=== PATIENT | male | born 1995 | race Caucasian/White ===

== ENCOUNTER 2021-01-09 00:02 | Emergency (ER) | payer SELFPAY ==
[2021-01-09 00:02] VITALS: BP 150/101; PULSE 101; RESP 20; TEMP 36.7; O2SAT 99; BMI 24.9
[2021-01-09 00:05] VITALS: BP 150/101; PULSE 101; RESP 20; TEMP 36.7; O2SAT 99
[2021-01-09] MEDS: 0.9% Normal Saline 1,000 ML 1000 ML IV ×2 (00:30→01:18)
[2021-01-09] MEDS: Ondansetron 4 MG/2 ML Vial IV (00:31)
[2021-01-09 00:54] LABS: Anion Gap 4 (5-15); BUN 10 mg/dL (7-18); BUN/Creat Ratio 8.3 RATIO (10-20); Calcium,Total 9.1 mg/dL (8.5-10.1); Chloride 102 mmol/L (98-107); EST Glomerular Filtration Rate 78 mL/min (>60); Est Glom Filt Rate - Afr Amer 94 mL/min (>60); Estimated Creatinine Clearance 96.32 ml/min; Glucose 97 mg/dL (74-106); Potassium 3.8 mmol/L (3.5-5.1); Sodium Level 134 mmol/L (136-145)
--- NOTE | 2021-01-09 00:57 | ED.DCSUM_ITS ---
History of Present Illness Chief Complaint: Nausea/Vomiting Narrative: Patient presenting for evaluation secondary to complications of coronavirus. Patient reports that he developed coronavirus symptoms on Sunday, 6 days ago. He states that he just got his positive test results today. He reports that he mainly has been dealing with GI type symptoms. States that he has been dealing with nausea vomiting diarrhea difficulty with tolerating p.o. and generalized body aches. Patient denies that he has been having chest pain or shortness of breath. He states that he feels that he is getting significantly dehydrated with this, and is presenting for further evaluation and treatment. He denies any underlying medical issues. He denies any history of lung disease. View of systems otherwise negative. Past Medical History - Allergies and Home Meds Allergies/Adverse Reactions: Allergies No Known Allergies Allergy (Verified 01/09/21 00:32) Primary Care Physician: RANJIT,DEFINED [NON-STAFF] - Prior records reviewed: Yes Past Medical History: None Lives: Spouse/ Significant Other Smoking Status: Never smoker Alcohol: None Drugs: None Review of Systems All systems negative except as indicated General: Reports: Malaise Eyes: Denies: Visual changes - bilaterally, Diplopia ENT: Denies: Rhinorrhea, Sore throat Cardiovascular: Denies: Chest pain, Palpitations Respiratory: Denies: Dyspnea, Cough, Dyspnea on exertion Gastrointestinal: Reports: Nausea, Vomiting, Diarrhea Genitourinary: Denies: Dysuria, Hematuria, Frequency Musculoskeletal: Denies: Back pain, Extremity Pain Skin: Denies: Rash, Wounds Neurological: Denies: Headache, Weakness, Numbness Physical Exam Vital Signs/Narrative: Vital Signs Temp Pulse Resp BP Pulse Ox 01/09/21 00:05 98.1 F 101 H 20 H 150/101 H 99 01/09/21 00:02 98.1 F 101 H 20 H 150/101 H 99 Inital Vital Signs reviewed: Yes General: Well nourished, Well developed, No Acute Distress Head: Normocephalic, Atraumatic Eyes: Perrl, EOMI ENT: No rhinorrhea, Dry mucous membranes Neck: Supple, Nontender Cardiovascular: Regular rhythm, No murmurs, Tachycardia Respiratory: No distress, CTA bilaterally, Chest nontender Abdomen: Soft, Nontender, Nondistended, Normal bowel sounds Back: Nontender, Normal Inspection Extremities: Nontender, No edema Skin: Normal color, No rash Neurological: Alert, Oriented x3, Cranial nerves II-XII grossly intact, Normal Strength, Normal Sensation Psychological: Normal affect, Normal Mood Diagnostic/Tx/Re-eval Laboratory Data 01/09/21 01/09/21 00:30 00:30 WBC 2.2 L RBC 5.46 Hgb 15.0 Hct 44.3 MCV 81.1 MCH 27.5 MCHC 33.9 RDW Std Deviation 37.9 RDW Coeff of Areli 12.9 Plt Count 169 MPV 9.7 Immature Gran % (Auto) 0.000 Neut % (Auto) 72.5 H Lymph % (Auto) 14.6 L [place] % (Auto) 11.9 H Eos % (Auto) 0.5 Baso % (Auto) 0.5 Absolute Neuts (auto) 1.6 L Absolute Lymphs (auto) 0.32 L Nucleated RBC % 0 Sodium 134 L Potassium 3.8 Chloride 102 Carbon Dioxide 28.0 Anion Gap 4 L BUN 10 Creatinine 1.20 Estim Creat Clear Calc 96.32 Est GFR (MDRD) Af Amer 94 Est GFR (MDRD) Non-Af 78 BUN/Creatinine Ratio 8.3 L Glucose 97 Calcium 9.1 Magnesium 2.0 - Medical Decision Making Patient presented secondary to illness stemming from coronavirus. IV was established patient was given Zofran and 2 L saline. Patient has no significant electrolyte derangements he has leukocyte suppression consistent with a coronavirus infection. Repeat evaluation of the patient at 0 118 shows him to have symptomatic improvement, is not hypoxic, he is not immune suppressed, I believe he is stable and appropriate for continued outpatient management. He will be sent home with a course of Zofran. ED Disposition - Plan for ED Patient: Disposition: Home or Assisted Living Diagnosis: COVID-19 Instructions: Coronavirus Disease 2019 (COVID-19): Caring for Yourself or Others Prescriptions: Ondansetron [Zofran Odt] 4 mg PO Q8H PRN PRN #10 tab PRN Reason: Nausea Prescription Printed Additional Instructions: Followup with your PCP as needed
[2021-01-09 01:10] LABS: Absolute Lymphocyte Count 0.32 X10^3/uL (0.83-4.51); Absolute Neutrophil Count 1.6 X10^3/uL (2.0-7.7); Basophil# 0.01 X10^3/uL; Basophil% 0.5 % (0-1); Eosinophil# 0.01 X10^3/uL; Eosinophils% 0.5 % (0-5); Hematocrit 44.3 % (40-54); Lymphocyte # 0.32 X10^3/ul (4.0); Lymphocyte % 14.6 % (19-41); Mean Corp Hgb Conc 33.9 g/dL (32-36); Mean Corpuscular Hgb 27.5 pg (27.0-32.0); Mean Corpuscular Volume 81.1 fL (80-94); Mean Platelet Vol. 9.7 fl (6.2-12.0); Monocyte# 0.26 X10^3/uL; Monocyte% 11.9 % (0-10); NRBC Flagged by Analyzer 0 % (0-5); Neutrophil # 1.59 X10^3/uL (2.7-7.7); Neutrophil % 72.5 % (47-70); POSITIVE DIFFERENTIAL YES; Platelet Count 169 K/mm3 (150-450); RBC Distribution Width CV 12.9 % (11.6-14.6); RBC Distribution Width SD 37.9 fl (35.1-43.9); Red Blood Count 5.46 M/mm3 (4.6-6.2); White Blood Count 2.2 K/mm3 (4.4-11.0)
[2021-01-09 01:11] LABS: Differential Indicated SCAN CRITERIA MET
[2021-01-09 01:21] VITALS: BP 148/88; PULSE 68; RESP 16; TEMP 36.8; O2SAT 98
[2021-01-09 01:56] LABS: Differential Comment SCANNED
[2021-01-09 02:04] VITALS: BP 136/91; PULSE 67; RESP 16
[2021-01-10 14:14] LABS: Pathologist Review Reviewed
== END 2021-01-09 02:19 | disposition home or self-care (01) ==
PROVIDERS: Emergency Provider Emergency Medicine
DX: U07.1 COVID-19 (principal)
CPT/HCPCS: 80048; 83735; 85025; 96361; 96374; 99283; J7030; J2405